=== PATIENT | male | born 1990 | race Caucasian/White ===

== ENCOUNTER 2016-11-27 08:49 | Emergency (ER) | payer OTHER ==
[~2016-11-27] VITALS: Ht 182.9 cm; Wt 72.6 kg
[~2016-11-27 08:49] MED LIST: BENTYL10 M1 PO; ZOFRAN4 M2 PO
--- NOTE | 2016-11-27 09:11 | ED GI/GU/ABDOMINAL COMPLAINT ---
History of Present Illness General Chief Complaint: Abdominal Pain/Flank Pain Stated Complaint: ABD PAIN Source: patient, old records Exam Limitations: no limitations Vital Signs & Intake/Output Vital Signs & Intake/Output Vital Signs Date Time Temp Pulse Resp B/P B/P Pulse O2 O2 Flow FiO2 Mean Ox Delivery Rate 11/27 1055 97.3 86 16 113/57 100 Room Air 11/27 0851 98.5 84 16 127/79 98 Room Air Allergies Coded Allergies: NO KNOWN ALLERGIES (12/08/15) Reconcile Medications Dicyclomine Hydrochloride (Bentyl) 10 MG CAPSULE 1 CAP PO TID abdominal pain Dicyclomine Hydrochloride (Bentyl) 10 MG CAPSULE 1 CAP PO TID PRN abdominal pain Omeprazole 20 MG TABLET.DR 1 TAB PO DAILY gastritis Ondansetron HCl (Zofran) 4 MG TABLET 1 TAB PO Q6-8P PRN nausea Triage Note: PT STATES THAT HE WOKE AT 0400 THIS AM VOMITTING , STAES AFTER HE VOMITTED HE STARTED WITH MID EPI GASTRIC PAIN, STATES THAT HE CAN'T KEEP ANYTHING DOWN, HAD THE SAME PROBLEM 6 MONTHS AGO AND THEY FOUND NOTHING. PT DRINKING WATER IN WAITING ROOM, AWARE THAT HE SHOULD NOT DRINK ANYTHING ELSE Triage Nurses Notes Reviewed? yes Onset: Abrupt (LAST NIGHT) Duration: hour(s): (LAST NIGHT), constant, continues in ED Timing: single episode today Quality/Severity: sharpness Severity Numbers: 8 Location: epigastric, left upper quadrant Radiation: no radiation Activities at Onset: sleep Prior Abdominal Problems: none Past Sexual History: Unobtainable at this time No Modifying Factors: none Associated Symptoms: abdominal pain, heartburn, nausea/vomiting HPI: 25-year-old male no severe past medical history presents complaining of epigastric abdominal pain and nausea vomiting that started abruptly last night. Patient reports he was at a family [employer] and drinking alcohol last night. He went to sleep woke up vomiting and developed epigastric abdominal pain. He denies vomiting any blood and he is tolerating fluids. Pain is located in the epigastric area and does not radiate. He rates it as an 8 out of 10 pain with no alleviating or aggravating factors. Onset was acute quality as severe as required patient come to the emergency department. Patient reports that last year. A similar episode after drinking and was seen in the emergency department. He had a CT scan of his abdomen and pelvis that was within normal limits. He feels his current symptoms today are similar to the previous episode. HE IS NOTTaking any medication for pain. No fevers diarrhea back pain blood in stool or blood in vomit. (DIVINE TAYLOR PA-C) Past History Travel History Traveled to [place] past 21 day No Medical History Any Pertinent Medical History? see below for history Neurological: NONE EENT: NONE Cardiovascular: NONE Respiratory: NONE Gastrointestinal: NONE Hepatic: NONE Renal: NONE Musculoskeletal: NONE Psychiatric: NONE Endocrine: NONE Blood Disorders: NONE Cancer(s): NONE FORCE ADJUSTMENT SUPERVISOR/Reproductive: NONE Surgical History Surgical History: N Psychosocial History What is your primary language Singaporean Tobacco Use: Never used ETOH Use: denies use Illicit Drug Use: denies illicit drug use Family History Hx Contributory? No (DIVINE TAYLOR PA-C) Review of Systems Review of Systems Constitutional: Reports: no symptoms. EENTM: Reports: no symptoms. Respiratory: Reports: no symptoms. Cardiovascular: Reports: no symptoms. GI: Reports: see HPI, abdominal pain, nausea, vomiting. Genitourinary: Reports: no symptoms. Musculoskeletal: Reports: no symptoms. Skin: Reports: no symptoms. Neurological/Psychological: Reports: no symptoms. Hematologic/Endocrine: Reports: no symptoms. Immunologic/Allergic: Reports: no symptoms. All Other Systems: Reviewed and Negative (DIVINE TAYLOR PA-C) Physical Exam Physical Exam General Appearance: well developed/nourished, no apparent distress, alert, awake , mild distress Head: atraumatic, normal appearance Eyes: Bilateral: normal appearance, PERRL, EOMI, normal inspection. Ears, Nose, Throat, Mouth: hearing grossly normal Neck: normal inspection, supple, full range of motion, normal alignment Respiratory: normal breath sounds, chest non-tender, no respiratory distress, lungs clear Cardiovascular: regular rate/rhythm Peripheral Pulses: 2+ radial (R), 2+ radial (L) Gastrointestinal: normal bowel sounds, soft, tenderness (EPIGASTRIC) Rectal: deferred Male Genitals: normal genitalia Back: normal inspection, normal range of motion, no vertebral tenderness Extremities: normal range of motion Neurologic/Psych: no motor/sensory deficits, awake, alert, oriented x 3, normal gait Skin: intact, normal color, warm/dry Core Measures ACS in differential dx? No Severe Sepsis Present: No Septic Shock Present: No (DIVINE TAYLOR PA-C) Progress Differential Diagnosis: appendicitis, biliary colic, bowel obstruction, cholecystitis, diverticulitis, gastritis, hepatitis, inflamm bowel dis, pancreatitis, peptic ulcer, PUD/GERD, perforated viscous, testicular torsion Plan of Care: Orders Procedure Date/time Status LIPASE 11/28 923 Complete C-REACTIVE PROTEIN 11/28 923 Complete COMPREHENSIVE METABOLIC PANEL 11/28 923 Complete CBC WITHOUT DIFFERENTIAL 11/28 923 Complete AMYLASE 11/28 923 Complete Laboratory Tests 11/27/16 0930: Anion Gap 15, Estimated GFR > 60, BUN/Creatinine Ratio 30.0 H, Glucose 81, Calcium 9.4, Total Bilirubin 1.0, AST 31, ALT 38, Alkaline Phosphatase 54, C- Reactive Prot, Quant < 0.5, Total Protein 8.4 H, Albumin 5.1 H, Globulin 3.3, Albumin/Globulin Ratio 1.5, Amylase 64, Lipase 59, CBC w Diff MAN DIFF ORDERED, RBC 4.67 L, MCV 92.6, MCH 30.7, RDW 13.2, MPV 8.9, Gran % 91.1 H, Lymphocytes % 5.3 L, Monocytes % 3.5, Eosinophils % 0, Basophils % 0.1, Absolute Granulocytes 14.8 H, Absolute Lymphocytes 0.9 L, Absolute Monocytes 0.6, Absolute Eosinophils 0, Absolute Basophils 0, Platelet Estimate ADEQUATE, Normocytic RBCs VERIFIED, Normochromic RBCs VERIFIED, PUBS MCHC 33.1 Labs were drawn including amylase and lipase which were within normal limits. Patient was given a liter of normal saline and 40 mg of Protonix IV. he was observed in the emergency department and reported resolution of pain after Protonix and fluids. Patient currently denies any pain nausea or vomiting. Patient will be discharged on omeprazole and Bentyl NEEDED. he'll follow up with his primary care doctor this week. (BRANDON LIZAMA,DIVINE) Initial ED EKG: none (BRANDON LIZAMA,DIVINE) Departure Departure Disposition: HOME OR SELF CARE Condition: Stable Clinical Impression Primary Impression: Gastritis Secondary Impressions: Epigastric abdominal pain Referrals: ZAYRA JARA,RICHARD Burnett (PCP/Family) Additional Instructions: Omeprazole and Bentyl as needed. Do not drink any alcohol. make a follow-up appointment with your primary care doctor this week. Return to emergency Department with any concerns. Departure Forms: Customer Survey General Discharge Information Prescriptions: Current Visit Scripts Omeprazole 1 TAB PO DAILY #30 TAB Dicyclomine Hydrochloride (Bentyl) 1 CAP PO TID #30 CAP (DIVINE TAYLOR PA-C) PA/FORCE ADJUSTMENT SUPERVISOR Co-Sign Statement Statement: ED Attending supervision documentation- I saw and evaluated the patient. I have also reviewed all the pertinent lab results and diagnostic results. I agree with the findings and the plan of care as documented in the PA's/FORCE ADJUSTMENT SUPERVISOR's documentation. x I have reviewed the ED Record and agree with the PA's/FORCE ADJUSTMENT SUPERVISOR's documentation. [] Additions or exceptions (if any) to the PAs/FORCE ADJUSTMENT SUPERVISOR's note and plan are summarized below: [] (VERO JARA,EDIE)
[2016-11-27 09:45] LABS: ABSOLUTE BASOPHIL COUNT 0 /CUMM (0.0-0.2); ABSOLUTE EOSINOPHIL COUNT 0 /CUMM (0.0-0.7); ABSOLUTE GRANULOCYTE CT 14.8 /CUMM (1.4-6.5); ABSOLUTE LYMPH COUNT 0.9 /CUMM (1.2-3.4); ABSOLUTE MONOCYTE COUNT 0.6 /CUMM (0.10-0.60); BASOPHIL % 0.1 % (0.0-2.0); EOSINOPHIL % 0 % (0-5); GRANULOCYTE % 91.1 % (42.2-75.2); HEMATOCRIT 43.3 % (42-52); MEAN CORPUSCULAR HGB 30.7 PG (27.0-31.0); MEAN CORPUSCULAR HGB CONC 33.1 G/DL (33.0-37.0); MEAN CORPUSCULAR VOLUME 92.6 FL (80.0-94.0); MEAN PLATELET VOLUME 8.9 FL (7.4-10.4); PLATELET COUNT 203 /CUMM (130-400); RBC DISTRIBUTION WIDTH 13.2 % (11.5-14.5); RED BLOOD CELL CT 4.67 /CUMM (4.70-6.10); WHITE BLOOD CELL COUNT 16.3 /CUMM (4.8-10.8)
[2016-11-27] MEDS ORDERED: BENTYL10 M1 PO (10:47)
[2016-11-27] MEDS ORDERED: OMEPRAZOLE20 M3 PO (10:47)
[2016-11-27 10:55] VITALS: BP 113/57
== END 2016-11-27 10:56 ==
LOC: ERH 08:49
PROVIDERS: Physician Assistant Medical
DX: K29.70 Gastritis, unspecified, without bleeding (principal)
CPT/HCPCS: 96374